=== PATIENT | male | born 1980 | race Caucasian/White ===

== ENCOUNTER 2023-09-28 08:01 | Day surgery (SDC) | payer OTHER ==
[~2023-09-28] VITALS: Ht 188 cm; Wt 83.0 kg
[~2023-09-28 08:01] MED LIST: PROBIOTI2 PO
[2023-09-28] MEDS ORDERED: LACTATED RINGER'S 1,000 ML IV ONE (08:04)
[2023-09-28] MEDS ORDERED: FAMOTIDINE 10MG/ML 2ML SDV IV ONE (08:04)
[2023-09-28 09:44] VITALS: BP 124/89
[2023-09-28] MEDS ORDERED: GLYCOPYRROLATE 0.2 MG/ML IV ONE (13:37)
[2023-09-28] MEDS ORDERED: PROPOFOL 200 MG/20 ML VIAL IV ONE (13:37)
[2023-09-28] MEDS ORDERED: LIDOCAINE HCL 2% 2ML SDV IV ONE (13:37)
== END 2023-09-28 10:03 | disposition home or self-care (01) ==
LOC: ENDO 08:01 → ORM 12:45
PROVIDERS: ATTEND Internal Medicine Gastroenterology
DX: D12.3 Benign neoplasm of transverse colon (principal); K57.30 Diverticulosis of large intestine without perforation or abscess without bleeding; K64.8 Other hemorrhoids